=== PATIENT | female | born 1995 | race Caucasian/White ===

== ENCOUNTER 2022-02-10 18:05 | Emergency (ER) | payer OTHER ==
[~2022-02-10] VITALS: Ht 167.6 cm; Wt 66.0 kg
[2022-02-10] MEDS ORDERED: TETANUS, DIPHTHERIA, PERTUSSIS VAC/PF 0.5ML (>10YR OLD) IM ONE (18:45)
[2022-02-10] MEDS ORDERED: ACETAMINOPHEN 325MG TABLET PO ONE (18:45)
[2022-02-10] MEDS ORDERED: IBUPROFEN 400MG TABLET PO ONE (18:45)
[2022-02-10] MEDS ORDERED: ACETAMINOPHEN 650MG/20.3ML UDC PO NR (19:30)
[2022-02-10] MEDS ORDERED: IBUPROFEN 100MG/5ML UDC PO NR (19:30)
[2022-02-10 20:43] VITALS: BP 130/76
== END 2022-02-10 22:20 | disposition home or self-care (01) ==
LOC: ER 18:05
DX: M25.561 Pain in right knee (principal); V49.9XXA Car occupant (driver) (passenger) injured in unspecified traffic accident, initial encounter; Y93.89 Activity, other specified; Y92.89 Other specified places as the place of occurrence of the external cause; Y99.8 Other external cause status
CPT/HCPCS: 73564; 73590; 73610; 99284; L1830; 90715